=== PATIENT | female | born 1965 | race African-American/Black ===

== ENCOUNTER → 2017-05-18 | Outpatient (CLI) | payer MEDICARE ==
[~2017-05-18] MED LIST: FLEC100T PO; HYDR200T PO; METO10TA82 PO; POTA25TA4 PO; PRED5TAB26 PO; WARF2.5T PO; WARF7.5T PO
[2017-05-18 10:07] LABS: ASPARTATE AMINO TRANSFERASE 24 U/L (15-37); BLOOD UREA NITROGEN 11 mg/dL (7-18)
[2017-05-18 10:14] LABS: HEMATOCRIT 44.5 % (34.6-47.8); HEMOGLOBIN 14.5 g/dL (11.7-16.4); WHITE BLOOD COUNT 3.4 x10^3/uL (3.4-10)
== END | disposition home or self-care (01) ==
LOC: LAB 09:36
PROVIDERS: ATTEND Internal Medicine Rheumatology
DX: D68.61 Antiphospholipid syndrome (principal); Z79.899 Other long term (current) drug therapy
CPT/HCPCS: 36415; 80053; 81001; 84156; 85025; 85610; 86160; 87086

== ENCOUNTER → 2017-12-11 | Outpatient (CLI) | payer MEDICARE ==
[~2017-12-11] MED LIST changes: +ALPR1TAB2 PO; +DULO30CA2 PO; +FLUT9.9S NAS; +FURO20TA3 PO; +GABA100C PO; +GADOBUTROL 7.5 MMOL/7.5 ML VIAL ONE; +HYDR-3307 PO; +ISOM1CAP11 PO; +LISI5TAB7 PO; +MYCO500T PO; +POTA20TA89 PO; +WARF5TAB PO
== END | disposition home or self-care (01) ==
LOC: CFH 08:13
PROVIDERS: ATTEND Family Medicine
DX: R90.82 White matter disease, unspecified (principal); D68.61 Antiphospholipid syndrome
CPT/HCPCS: 70553; A9585

== ENCOUNTER → 2018-06-12 | Outpatient (CLI) | payer MEDICARE ==
[~2018-06-12] MED LIST changes: -GADOBUTROL 7.5 MMOL/7.5 ML VIAL ONE; -HYDR200T PO; +HYDR200T72 PO
[2018-06-12 15:58] LABS: MEAN CORPUSCULAR HEMOGLOBIN 32.3 pg (27.0-34.8); MEAN CORPUSCULAR HGB CONC 33.5 g/dL (32.4-35.8); MEAN CORPUSCULAR VOLUME 96.4 fL (80-100); MEAN PLATELET VOLUME 8.4 fL (7.4-10.4); PLATELET COUNT 190 x10^3/uL (130-400); RED BLOOD COUNT 4.46 x10^6/uL (3.82-5.3); RED CELL DISTRIBUTION WIDTH 13.4 % (9.6-15.2)
[2018-06-12 16:00] LABS: INTERNATIONAL NORMALIZED RATIO 1.16 (0.93-1.1)
[2018-06-12 16:43] LABS: BASOPHILS # (AUTO) 0.01 x10^3/uL (0-0.1); BASOPHILS % (AUTO) 0 % (0-1); EOSINOPHILS # (AUTO) 0.05 x10^3/uL (0-0.4); EOSINOPHILS % (AUTO) 1 % (1-7); LYMPHOCYTES % (AUTO) 27 % (22-44); MD SCAN; MONOCYTES # (AUTO) 0.29 x10^3/uL (0.2-0.8); MONOCYTES % (AUTO) 9 % (2-9); NEUTROPHILS # (AUTO) 2.06 x10^3/uL (1.8-6.8); NEUTROPHILS % (AUTO) 62 % (42-75)
== END | disposition home or self-care (01) ==
LOC: LAB 15:32
PROVIDERS: ATTEND Internal Medicine Rheumatology
DX: D72.9 Disorder of white blood cells, unspecified (principal); D68.61 Antiphospholipid syndrome; Z88.0 Allergy status to penicillin; Z88.2 Allergy status to sulfonamides
CPT/HCPCS: 36415; 85025; 85610

== ENCOUNTER → 2018-08-20 | Outpatient (CLI) | payer MEDICARE ==
[2018-08-20 10:47] LABS: INTERNATIONAL NORMALIZED RATIO 1.79 (0.93-1.1); PROTHROMBIN TIME 18.4 Seconds (9.6-11.5)
== END | disposition home or self-care (01) ==
LOC: LAB 10:23
PROVIDERS: ATTEND Internal Medicine Rheumatology
DX: D68.61 Antiphospholipid syndrome (principal)
CPT/HCPCS: 36415; 85610

== ENCOUNTER → 2019-08-15 | Outpatient (CLI) | payer MEDICARE ==
[~2019-08-15] MED LIST changes: -HYDR-3307 PO; +HYDR-36 PO
[2019-08-15 08:48] LABS: INTERNATIONAL NORMALIZED RATIO 4.21 (0.93-1.1); PROTHROMBIN TIME 41.8 Seconds (9.6-11.5)
[2019-08-15 08:53] LABS: ALANINE AMINOTRANSFERASE 17 U/L (12-78); ALBUMIN 3.6 g/dL (3.4-5.0); ANION GAP 5 mmol/L (5-15); CALCIUM 8.5 mg/dL (8.5-10.1); CHLORIDE 112 mmol/L (98-107); CREATININE 0.79 mg/dL (0.55-1.02)
[2019-08-15 08:54] LABS: BASOPHILS # (AUTO) 0.02 x10^3/uL (0-0.1); BASOPHILS % (AUTO) 1 % (0-1); EOSINOPHILS # (AUTO) 0.05 x10^3/uL (0-0.4); EOSINOPHILS % (AUTO) 2 % (1-7); LYMPHOCYTES # (AUTO) 0.82 x10^3/uL (1-3.4); LYMPHOCYTES % (AUTO) 28 % (22-44); MD NO; MEAN CORPUSCULAR HEMOGLOBIN 31.9 pg (27.0-34.8); MEAN CORPUSCULAR HGB CONC 33.2 g/dL (32.4-35.8); MEAN CORPUSCULAR VOLUME 96.1 fL (80-100); MEAN PLATELET VOLUME 8.3 fL (7.4-10.4); MONOCYTES # (AUTO) 0.21 x10^3/uL (0.2-0.8); MONOCYTES % (AUTO) 7 % (2-9); NEUTROPHILS # (AUTO) 1.88 x10^3/uL (1.8-6.8); NEUTROPHILS % (AUTO) 63 % (42-75); PLATELET COUNT 169 x10^3/uL (130-400); RED BLOOD COUNT 4.72 x10^6/uL (3.82-5.3); RED CELL DISTRIBUTION WIDTH 13.1 % (9.6-15.2)
[2019-08-15 08:55] LABS: ALKALINE PHOSPHATASE 100 U/L (45-117); BILIRUBIN,TOTAL 0.4 mg/dL (0.2-1.0); TOTAL PROTEIN 6.7 g/dL (6.4-8.2)
== END | disposition home or self-care (01) ==
LOC: LAB 08:25
PROVIDERS: ATTEND Internal Medicine Rheumatology
DX: D64.9 Anemia, unspecified (principal); D68.61 Antiphospholipid syndrome; R79.9 Abnormal finding of blood chemistry, unspecified
CPT/HCPCS: 36415; 80053; 85025; 85610

== ENCOUNTER → 2019-09-18 | Outpatient (CLI) | payer MEDICARE ==
[2019-09-18 12:47] LABS: BASOPHILS # (AUTO) 0.02 x10^3/uL (0-0.1); BASOPHILS % (AUTO) 1 % (0-1); EOSINOPHILS # (AUTO) 0.03 x10^3/uL (0-0.4); EOSINOPHILS % (AUTO) 1 % (1-7); LYMPHOCYTES # (AUTO) 0.91 x10^3/uL (1-3.4); LYMPHOCYTES % (AUTO) 24 % (22-44); MD NO; MEAN CORPUSCULAR HEMOGLOBIN 31.2 pg (27.0-34.8); MEAN CORPUSCULAR HGB CONC 32.4 g/dL (32.4-35.8); MEAN CORPUSCULAR VOLUME 96.4 fL (80-100); MEAN PLATELET VOLUME 8.2 fL (7.4-10.4); MONOCYTES # (AUTO) 0.25 x10^3/uL (0.2-0.8); MONOCYTES % (AUTO) 7 % (2-9); NEUTROPHILS % (AUTO) 68 % (42-75); PLATELET COUNT 178 x10^3/uL (130-400); RED BLOOD COUNT 4.66 x10^6/uL (3.82-5.3); RED CELL DISTRIBUTION WIDTH 14.2 % (9.6-15.2)
[2019-09-18 12:51] LABS: INTERNATIONAL NORMALIZED RATIO 2.08 (0.93-1.1); PROTHROMBIN TIME 21.2 Seconds (9.6-11.5)
[2019-09-18 13:06] LABS: CALCIUM 9.3 mg/dL (8.5-10.1); CHLORIDE 111 mmol/L (98-107)
[2019-09-18 13:13] LABS: ALANINE AMINOTRANSFERASE 32 U/L (12-78); ALBUMIN 3.5 g/dL (3.4-5.0); ALKALINE PHOSPHATASE 104 U/L (45-117); ANION GAP 4 mmol/L (5-15); BILIRUBIN,TOTAL 0.4 mg/dL (0.2-1.0); CREATININE 0.88 mg/dL (0.55-1.02)
== END | disposition home or self-care (01) ==
LOC: LAB 12:24
PROVIDERS: ATTEND Family Medicine
DX: D68.61 Antiphospholipid syndrome (principal); D64.9 Anemia, unspecified; R79.9 Abnormal finding of blood chemistry, unspecified
CPT/HCPCS: 36415; 80053; 85025; 85610

== ENCOUNTER → 2019-12-05 | Outpatient (CLI) | payer MEDICARE ==
[2019-12-05 10:34] LABS: PROTHROMBIN TIME 21.4 Seconds (9.6-11.5)
[2019-12-05 10:37] LABS: MEAN CORPUSCULAR HGB CONC 33.4 g/dL (32.4-35.8); MEAN PLATELET VOLUME 8.3 fL (7.4-10.4); PLATELET COUNT 185 x10^3/uL (130-400); RED BLOOD COUNT 4.55 x10^6/uL (3.82-5.3); RED CELL DISTRIBUTION WIDTH 14.3 % (9.6-15.2)
[2019-12-05 10:38] LABS: ALBUMIN 3.6 g/dL (3.4-5.0); ANION GAP 3 mmol/L (5-15); CALCIUM 8.8 mg/dL (8.5-10.1); CHLORIDE 112 mmol/L (98-107)
[2019-12-05 10:41] LABS: ALANINE AMINOTRANSFERASE 24 U/L (12-78); ALKALINE PHOSPHATASE 108 U/L (45-117); BILIRUBIN,TOTAL 0.3 mg/dL (0.2-1.0); CREATININE 0.89 mg/dL (0.55-1.02)
[2019-12-05 10:51] LABS: BASOPHILS # (AUTO) 0.01 x10^3/uL (0-0.1); BASOPHILS % (AUTO) 1 % (0-1); EOSINOPHILS # (AUTO) 0.05 x10^3/uL (0-0.4); EOSINOPHILS % (AUTO) 2 % (1-7); LYMPHOCYTES % (AUTO) 32 % (22-44); MD SCAN; MONOCYTES % (AUTO) 8 % (2-9); NEUTROPHILS # (AUTO) 1.42 x10^3/uL (1.8-6.8); NEUTROPHILS % (AUTO) 57 % (42-75)
== END | disposition home or self-care (01) ==
LOC: LAB 10:13
PROVIDERS: ATTEND Family Medicine
DX: D64.9 Anemia, unspecified (principal); D68.61 Antiphospholipid syndrome; L93.0 Discoid lupus erythematosus; R79.9 Abnormal finding of blood chemistry, unspecified
CPT/HCPCS: 36415; 80053; 85025; 85610

== ENCOUNTER → 2020-04-07 | Outpatient (CLI) | payer MEDICARE ==
[~2020-04-07] MED LIST changes: +HYDR-3246 PO; -HYDR-36 PO; -WARF2.5T PO; +WARF2.5T2 PO; -WARF5TAB PO; +WARF5TAB2 PO
[2020-04-07 09:11] LABS: INTERNATIONAL NORMALIZED RATIO 1.37 (0.93-1.1); PROTHROMBIN TIME 14.6 Seconds (9.6-11.5)
[2020-04-07 09:14] LABS: ALBUMIN 3.8 g/dL (3.4-5.0); ANION GAP 7 mmol/L (5-15); CALCIUM 9.5 mg/dL (8.5-10.1); CHLORIDE 111 mmol/L (98-107)
[2020-04-07 09:23] LABS: % IRON SATURATION 17 % (20-55); ABSOLUTE RETICS # 0.07 x10^6/uL (0.5-2.5); ALANINE AMINOTRANSFERASE 26 U/L (12-78); ALKALINE PHOSPHATASE 86 U/L (45-117); BILIRUBIN,TOTAL 0.6 mg/dL (0.2-1.0); CREATININE 0.76 mg/dL (0.55-1.02); FREE T4 (FREE THYROXINE) 1.16 ng/dL (0.76-1.46); IRON LEVEL 55 mcg/dL (50-170); RED BLOOD COUNT 4.74 x10^6/uL (3.82-5.3); RETICULOCYTE COUNT % 1.47 % (0.5-1.5); TOTAL IRON BINDING CAPACITY 324 mcg/dL (250-450); TOTAL PROTEIN 7.5 g/dL (6.4-8.2)
[2020-04-07 10:01] LABS: MEAN CORPUSCULAR HEMOGLOBIN 32.2 pg (27.0-34.8); MEAN CORPUSCULAR HGB CONC 32.9 g/dL (32.4-35.8); MEAN CORPUSCULAR VOLUME 97.8 fL (80-100); MEAN PLATELET VOLUME 8.1 fL (7.4-10.4); PLATELET COUNT 193 x10^3/uL (130-400); RED BLOOD COUNT 4.74 x10^6/uL (3.82-5.3); RED CELL DISTRIBUTION WIDTH 13.6 % (9.6-15.2)
[2020-04-07 10:11] LABS: BASOPHILS # (AUTO) 0.01 x10^3/uL (0-0.1); BASOPHILS % (AUTO) 0 % (0-1); EOSINOPHILS # (AUTO) 0.02 x10^3/uL (0-0.4); EOSINOPHILS % (AUTO) 0 % (1-7); LYMPHOCYTES # (AUTO) 0.49 x10^3/uL (1-3.4); LYMPHOCYTES % (AUTO) 13 % (22-44); MD SCAN; MONOCYTES # (AUTO) 0.14 x10^3/uL (0.2-0.8); MONOCYTES % (AUTO) 4 % (2-9); NEUTROPHILS # (AUTO) 3.17 x10^3/uL (1.8-6.8); NEUTROPHILS % (AUTO) 83 % (42-75)
== END | disposition home or self-care (01) ==
LOC: LAB 08:44
PROVIDERS: ATTEND Internal Medicine Rheumatology
DX: R79.9 Abnormal finding of blood chemistry, unspecified (principal); D64.9 Anemia, unspecified; R63.4 Abnormal weight loss; D68.61 Antiphospholipid syndrome
CPT/HCPCS: 36415; 80053; 82728; 83540; 83550; 84439; 84443; 84481; 85025; 85045; 85610

== ENCOUNTER → 2020-06-30 | Outpatient (CLI) | payer MEDICARE ==
[2020-06-30 09:48] LABS: ALBUMIN 3.7 g/dL (3.4-5.0); CALCIUM 9.3 mg/dL (8.5-10.1); CHLORIDE 114 mmol/L (98-107)
[2020-06-30 09:50] LABS: INTERNATIONAL NORMALIZED RATIO 2.47 (0.93-1.1); PROTHROMBIN TIME 25.7 Seconds (9.6-11.5)
[2020-06-30 09:52] LABS: % IRON SATURATION 48 % (20-55); ALANINE AMINOTRANSFERASE 23 U/L (12-78); ALKALINE PHOSPHATASE 94 U/L (45-117); ANION GAP 5 mmol/L (5-15); BILIRUBIN,TOTAL 0.5 mg/dL (0.2-1.0); CREATININE 0.81 mg/dL (0.55-1.02); IRON LEVEL 129 mcg/dL (50-170); TOTAL IRON BINDING CAPACITY 270 mcg/dL (250-450); TOTAL PROTEIN 7.1 g/dL (6.4-8.2)
[2020-06-30 09:53] LABS: MICROSCOPIC AUTO
[2020-06-30 10:20] LABS: BASOPHILS # (AUTO) 0.02 x10^3/uL (0-0.1); BASOPHILS % (AUTO) 1 % (0-1); EOSINOPHILS # (AUTO) 0.04 x10^3/uL (0-0.4); EOSINOPHILS % (AUTO) 1 % (1-7); LYMPHOCYTES % (AUTO) 30 % (22-44); MD SCAN; MEAN CORPUSCULAR HEMOGLOBIN 31.2 pg (27.0-34.8); MEAN CORPUSCULAR HGB CONC 32.7 g/dL (32.4-35.8); MEAN CORPUSCULAR VOLUME 95.2 fL (80-100); MEAN PLATELET VOLUME 8.4 fL (7.4-10.4); MONOCYTES # (AUTO) 0.21 x10^3/uL (0.2-0.8); MONOCYTES % (AUTO) 7 % (2-9); NEUTROPHILS % (AUTO) 62 % (42-75); PLATELET COUNT 200 x10^3/uL (130-400); RED BLOOD COUNT 4.77 x10^6/uL (3.82-5.3); RED CELL DISTRIBUTION WIDTH 13.7 % (9.6-15.2)
== END | disposition home or self-care (01) ==
LOC: LAB 09:13
PROVIDERS: ATTEND Family Medicine
DX: D68.61 Antiphospholipid syndrome (principal); D64.9 Anemia, unspecified; R79.9 Abnormal finding of blood chemistry, unspecified; R10.84 Generalized abdominal pain; D70.9 Neutropenia, unspecified; M25.50 Pain in unspecified joint; Z79.01 Long term (current) use of anticoagulants
CPT/HCPCS: 36415; 80053; 81001; 82728; 83540; 83550; 83690; 85025; 85610

== ENCOUNTER 2020-10-30 09:13 | Outpatient (CLI) | payer MEDICARE ==
[~2020-10-30 09:13] MED LIST changes: -HYDR-3246 PO; +HYDR-3248 PO
[2020-10-30 09:54] LABS: BASOPHILS % (AUTO) 1 % (0-1); EOSINOPHILS % (AUTO) 1 % (1-7); LYMPHOCYTES % (AUTO) 28 % (22-44); MEAN CORPUSCULAR HGB CONC 33.5 g/dL (32.4-35.8); MEAN PLATELET VOLUME 8.8 fL (7.4-10.4); MONOCYTES % (AUTO) 7 % (2-9); NEUTROPHILS % (AUTO) 64 % (42-75); PLATELET COUNT 161 x10^3/uL (130-400); RED BLOOD COUNT 4.57 x10^6/uL (3.82-5.3)
[2020-10-30 09:58] LABS: MD NO
[2020-10-30 10:05] LABS: ALANINE AMINOTRANSFERASE 25 U/L (12-78); ALBUMIN 3.8 g/dL (3.4-5.0); ANION GAP 7 mmol/L (5-15); CALCIUM 8.9 mg/dL (8.5-10.1); CHLORIDE 112 mmol/L (98-107); CREATININE 0.74 mg/dL (0.55-1.02)
[2020-10-30 10:07] LABS: INTERNATIONAL NORMALIZED RATIO 1.84 (0.93-1.1); PROTHROMBIN TIME 19.4 Seconds (9.6-11.5)
[2020-10-30 10:20] LABS: C-REACTIVE PROTEIN, QUANT < 0.02 mg/dL (0.02-0.49)
[2020-10-30 10:27] LABS: HCT (SEDRATE) 43.7 % (34.6-47.8)
[2020-10-30 10:31] LABS: ALKALINE PHOSPHATASE 88 U/L (45-117); BILIRUBIN,TOTAL 0.6 mg/dL (0.2-1.0); TOTAL PROTEIN 7.1 g/dL (6.4-8.2)
== END 2020-10-30 23:59 | disposition home or self-care (01) ==
LOC: LAB 09:13
PROVIDERS: ATTEND Internal Medicine Rheumatology
DX: Z51.81 Encounter for therapeutic drug level monitoring (principal); M32.9 Systemic lupus erythematosus, unspecified; R10.33 Periumbilical pain; K31.84 Gastroparesis
CPT/HCPCS: 36415; 80053; 82306; 82607; 84443; 85025; 85610; 85651; 86140

== ENCOUNTER 2021-03-24 15:33 | Emergency (ER) | payer MEDICARE ==
[~2021-03-24] VITALS: Ht 154.9 cm; Wt 40.9 kg
--- NOTE | 2021-03-24 16:37 | NUR ---
BIB EMS FROM . PT WITH C/O GEN WEAKNESS, RIGHT SIDE FACIAL DROOP NOTED AT AND PT WITH HX OF TIA'S. PT NOW PRESENTS WITH NEG STROKE SCALE AND NO FACIAL DROOP. SLIGHT DECREASE OF SENSATION RIGHT SIDE LOWER PART OF CHEEK. PT AMBULATORY WITH STEADY GAIT TO BATHROOM AND URINE SAMPLE COLLECTED. PT RTD TO ROOM AND ALL MONITORS PLACED. DR TORRES AT BEDSIDE, NEURO EXAM NEGATIVE. PT ASSESSMENT, POC DISCUSSED AND QUESTIONS ANSWERED. VSS, CALL LIGHT W/I REACH
[2021-03-24] MEDS ORDERED: OMEP-110 PO (16:42)
[2021-03-24] MEDS ORDERED: ONDANSETRON ODT 4 MG ONE (17:27)
[2021-03-24] MEDS ORDERED: ONDANSETRON ODT 4 MG PO ONE (17:30)
[2021-03-24 18:35] VITALS: BP 113/65
--- NOTE | 2021-03-24 18:38 | NUR ---
Patient/Caregiver given discharge instructions and they have confirmed that they understand the instructions. Patient ambulatory with steady gait. NAD, all questions answered appropriately, denies additional needs at this time. No personal belongings left in room after discharge.
== END 2021-03-24 18:44 | disposition home or self-care (01) ==
LOC: ED 16:03
DX: G51.0 Bell's palsy (principal); M54.2 Cervicalgia
CPT/HCPCS: 70450; 99284; Q0162